=== PATIENT | male | born 1970 | race Caucasian/White ===

== ENCOUNTER 2018-02-24 21:55 | Inpatient (IN) | payer MEDICARE, MEDICAID ==
[~2018-02-24] VITALS: Ht 180.3 cm; Wt 97.5 kg
[~2018-02-24 21:55] MED LIST: ABILIFY; ABILIFY 5 MG TAB5 M1; ABILIFY10 MG PO; ACETAMINOPHEN-1 EAC1 PO; ALBUTEROL INHAL17 GM IH; ALPRAZOLAM; ALPRAZOLAM ER1 MG PO; AMOXICILLIN 50500 M1 PO; AMOXICILLIN 50500 MG PO; AMOXICILLIN500 M1 PO; AMOXICILLIN875 MG PO; AUGMENTIN 875875 MG PO; AURALGAN EAR DR14 ML OT; BACTRIM DS TAB1 EACH PO; CARISOPRODOL 3350 MG PO; CHERATUSSIN DA480 ML; CIPRODEX OTIC7.5 ML OTIC; DOXYCYCLINE 10100 M1 PO; FLEXERIL PO; FLONASE 0.05%50 MCG NASAL; HYDROCODON-ACE1 EAC7 PO; HYDROCODONE-AP1 EAC6 PO; IBUPROFEN 800800 M1 PO; KEFLEX500 MG PO; LATUDA40 MG PO; LORTAB 5 MG/5001 TAB PO; NAPROSYN375 MG PO; NAPROSYN500 MG PO; NEXIUM; NEXIUM 40 MG CA40 M1 PO; NEXIUM40 MG PO; NORCO 5-325 TA1 EACH PO; PAXIL10 MG; PENICILLIN VK500 M1 PO; PENICILLIN VK500 MG PO; PERCOCET 5-3251 EACH PO; PHENERGAN 25 MG25 M1 PO; PHENERGAN-CODE120 ML PO; PREDNISONE 10 M10 M1 PO; PREDNISONE 20 M20 M1 PO; TESSALON PERLE100 MG PO; TESTOSTERONE; THROAT LOZENGE1 EACH PO; TYLENOL325 MG PO; ULTRAM 50MG TAB50 MG PO; VALIUM5 MG PO; WELLBUTRIN SR150 MG PO; XANAX 0.5 MG0.5 MG PO; XANAX XR1 MG; XANAX1 MG PO; ZOFRAN ODT4 MG PO; ZOFRAN4 MG PO; ZPAK PO
[2018-02-24 22:14] VITALS: BP 144/82
[2018-02-24] MEDS ORDERED: AMOXICILLIN 50500 MG (22:18)
[2018-02-24] MEDS ORDERED: DICLOFENAC SODI25 MG (22:18)
[2018-02-24 23:45] LABS: ABSOLUTE LYMPHOCYTES 0.8 thou/uL (0.8-5.3); ABSOLUTE MONOCYTES 0.1 thou/uL (0.0-1.2); ABSOLUTE NEUTROPHILS 2.7 thou/uL (1.6-8.1); BASOPHILS 0.5 %; EOSINOPHILS 0.1 %; HEMATOCRIT 36.9 % (42.0-52.0); HEMOGLOBIN 11.8 gm/dL (14.0-18.0); LYMPHOCYTES 21.4 %; MCH 23.6 pg (26.0-34.0); MCHC 31.9 g/dL (28.0-37.0); MONOCYTES 2.5 %; MPV 8.2 fl. (7.2-11.1); NUCLEATED RBCS 0 /100WBC; PLATELET COUNT* 173 thou/uL (150-400); POLYS 75.5 %; RBC 4.99 mil/uL (4.50-6.00); RDW-CV 15.2 % (10.5-14.5); WBC 3.5 thou/uL (4.0-11.0)
[2018-02-24 23:49] LABS: ANION GAP 8 mmol/L (7-16); BUN 15 mg/dL (7-18); CALCIUM 7.9 mg/dL (8.5-10.1); CHLORIDE 107 mmol/L (98-107); CO2 27 mmol/L (21-32); CREATININE 1.1 mg/dL (0.6-1.3); GLUCOSE 150 mg/dL (70-99); POTASSIUM 3.6 mmol/L (3.5-5.1); SODIUM 142 mmol/L (136-145)
[2018-02-24 23:56] LABS: ALBUMIN 2.9 g/dL (3.4-5.0); ALKALINE PHOSPHATASE 46 U/L (46-116); SGOT 57 U/L (15-37); SGPT 83 U/L (30-65); TOTAL BILIRUBIN 0.3 mg/dL (<0.1-1.0); TOTAL PROTEIN 6.3 g/dL (6.4-8.2); TROPONIN-I LEVEL <0.06 ng/mL (<0.06)
[2018-02-25] VITALS (7 sets, daily range): BP systolic 113–143; BP diastolic 67–91
[2018-02-25] MEDS ORDERED: ACETAMINOPHEN-1 EAC1 PO (00:03)
[2018-02-25] MEDS ORDERED: PROMETHAZINE V473 ML PO (00:03)
[2018-02-25] MEDS ORDERED: TESSALON PERLE100 MG PO (00:03)
[2018-02-25] MEDS ORDERED: PROAIR HFA8.5 GM INH (00:03)
[2018-02-25] MEDS ORDERED: ZPAK PO (00:03)
[2018-02-25] MEDS ORDERED: XANAX1 MG PO (01:41)
[2018-02-25 01:47] LABS: INFLUENZA A ANTIGEN None Detected (None Detect); INFLUENZA B ANTIGEN None Detected (None Detect)
--- NOTE | 2018-02-25 07:57 | NUR ---
PT WAS ADMITTED TO ROOM 209 DURING THIS SHIFT; VSS EXCEPT FOR TACHYCARDIA, A+OX4, HAS SOME LEFT RIB PAIN. HE IS ABLE TO COMMUNICATE HIS NEEDS TO STAFF EFFECTIVELY. CURRENT PAIN MEDICATION REGIMEN HAS BEEN ADEQUATE FOR CONTROLLING HIS PAIN UP TO THIS TIME. HE HAS HAD SOME BLOOD-TINGED SPUTUM.
--- NOTE | 2018-02-25 10:08 | NUR ---
This RN agrees with the assessment of SN. Ashvin
--- NOTE | 2018-02-25 12:59 | NUR ---
RECEIVED REPORT. ASSUMED CARE OF PT AT 0730. PT A&O X4. VSS, PT SLIGHTLY FEBRILE 101.8. MESSAGE SENT TO DR RODRIGUEZ FOR ORDER FOR TYLENOL. O2 SAT 92% ON 2L PER NC. [place] CLERK IN PLACE TRACING SR. AM ASSESSMENT AND VITALS COMPLETED CHARTED. PT NEGATIVE FOR SEPSIS. PT STATES "I FEEL LIKE CRAP". REASSURANCE GIVEN. NOTED COARSE LUNG SOUNDS TO LEFT LOWER AND UPPER LOBES, DIMINISHED LUNGS SOUNDS ON THE RIGHT. PT HAVING EXERTIONAL DYSPNEA. PT EATING AND DRINKING WITHOUT ISSUE. IV INTACT AND INFUSING IVF. PT REPORTS INTERMITTENT LEFT SIDE PAIN WITH COUGHING. PT DENIES NEED FOR MEDICATION FOR PAIN AT THIS TIME. PT INFORMED OF PLAN OF CARE. PT COMMUNICATES UNDERSTANDING. PT WENT DOWN FOR CTA OF CHEST AND CT ABD/PELVIS THIS AM. PT RESTING IN BED AT THIS TIME. CALL LIGHT IS WITHIN REACH. LOW FALL RISK PRECAUTIONS ARE IN PLACE. WCTM.
[2018-02-25 13:13] LABS: HEMOGLOBIN 11.9 gm/dL (14.0-18.0); MCH 23.4 pg (26.0-34.0); MCHC 31.5 g/dL (28.0-37.0); MCV 74.4 fL (80.0-100.0); MPV 8.2 fl. (7.2-11.1); NUCLEATED RBCS 0 /100WBC; PLATELET COUNT* 194 thou/uL (150-400); RDW-CV 15.7 % (10.5-14.5); WBC 6.1 thou/uL (4.0-11.0)
[2018-02-25 13:21] LABS: ALBUMIN 2.9 g/dL (3.4-5.0); CALCIUM 7.9 mg/dL (8.5-10.1); MAGNESIUM 1.7 mg/dL (1.8-2.4); POTASSIUM 3.8 mmol/L (3.5-5.1); TOTAL BILIRUBIN 0.2 mg/dL (<0.1-1.0); TOTAL PROTEIN 6.6 g/dL (6.4-8.2)
[2018-02-25 13:27] LABS: ABSOLUTE LYMPHOCYTES 0.4 thou/uL (0.8-5.3); ABSOLUTE MONOCYTES 0.1 thou/uL (0.0-1.2); ABSOLUTE NEUTROPHILS 5.6 thou/uL (1.6-8.1); ANISOCYTOSIS 1+; PLATELET ESTIMATE ADEQUATE; POIKILOCYTOSIS 1+
[2018-02-25 13:44] LABS: AMP/METHAMP Negative (Negative); BARBITURATES Negative (Negative); BENZODIAZEPINES Negative (Negative); COCAINE Negative (Negative); METHADONE Negative (Negative); OPIATES Negative (Negative); PCP Negative (Negative); THC Negative (Negative)
--- NOTE | 2018-02-25 14:38 | NUR ---
CM ASSESSMENT: Pt is A&O. Resides at home with his . Independent with ADLS. No DME. No hx of HH or SNF. Goal is to return home once medically stable. No needs anticipated. Following.
--- NOTE | 2018-02-25 15:24 | EKG ---
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 : 1970 Requested By: Janny Medel Order Number: [id number] MD: Jos Batres Measurements Intervals [place] Rate: 111 P: 44 CA: 117 QRS: 36 QRSD: 86 T: -18 QT: 310 QTc: 421 Interpretive Statements Sinus tachycardia Atrial premature complexes Borderline T abnormalities, inferior leads Baseline wander in lead(s) II,III,aVF Compared to ECG 11/15/2017 17:35:30 Atrial premature complex(es) now present T-wave abnormality now present Sinus rhythm no longer present Electronically Signed On 02-25-2018 15:24:33 CDT by Jos Batres [email or web address] <ELECTRONICALLY SIGNED> By: Jos Batres MD, FACC 02/25/18 1524 [id number] Jos Batres MD, FACC /EPI
--- NOTE | 2018-02-25 16:03 | CON ---
[address] [address] CONSULTATION Name: AISHA MEDINA JR Room: [address] IN .R.#: [id number] Admission: 02/25/18 Attend Phys: Jose Francisco Whitlock MD Discharge: Date of : 74 Report #: [id number] THIS REPORT FOR: //name// CC: Jose Francisco Becker DATE OF SERVICE: 02/25/2018 REQUESTING PHYSICIAN: Dr. Dougherty. INDICATION FOR CONSULTATION: Pulmonary infiltrates. HISTORY OF PRESENT ILLNESS: A 47-year-old gentleman. He has a remote history of smoking. He does have a history of marijuana use. The patient has also had a reported history of use of alcohol, unable to quantify exactly at this time. The patient is now here with pneumonia. He has relapsed. He reports having had increase in shortness of breath as well as a cough with hemoptysis for the last several days. The patient also has a high grade fever up to 38.8 degrees Celsius. He does report having had fever and chills. The patient also reports having had chest pain associated with respiration and coughing, at times he has had pain in his abdomen as well. He does have some distention in his abdomen, but denies having had any nausea, vomiting, diarrhea or constipation. The patient does have disturbed sleep at night as well as sleepiness during the day. These complaints are at baseline. The patient has a CPAP at home; however, it is broken. He was due for another sleep study. The patient did not have any upper respiratory complaints at this time. REVIEW OF SYSTEMS: For 12 points is negative except as mentioned above. PAST MEDICAL HISTORY: Dental abscess/dental caries, ingrown left great toenail, otitis media, pneumonia, bipolar disorder, anxiety, obstructive sleep apnea, CPAP currently broken. CURRENT MEDICATIONS: List in [place] reviewed. HOME MEDICATIONS: List also in [place] reviewed. FAMILY HISTORY: No pertinent family history is known at this time. SOCIAL HISTORY: The patient reports that he was a smoker and discontinued 20 years ago, but states that he smoked for many years prior to that more than a pack a day. He does use marijuana. There is conflicting information regarding use of alcohol. There is use of alcohol, unclear as to whether the patient has a history of heavy alcohol use. PHYSICAL EXAMINATION: [place] [address] CONSULTATION Name: AISHA MEDINA JR Room: [address]#: [id number] Admission: 02/25/18 Attend Phys: Jose Francisco Whitlock MD Discharge: Date of : 74 Report #: [id number] GENERAL: He is alert, awake and oriented, does not appear to have any distress at this time. VITAL SIGNS: Has a pulse of 110, blood pressure 143/74. He has a high grade fever 38.8. His respiratory rate is 22. He is on 2 liters nasal cannula, saturating 92%. HEENT: Head is normocephalic, atraumatic. Pupils are equal and reactive. There is no throat erythema. He has a Mallampati 3 airway. NECK: Does not show raised JVP, asymmetry, mass or lymph nodes. CHEST: Symmetrical expansion on inspection and palpation. On auscultation, breath sounds are bilaterally equal. No added sounds. HEART: Regular. There is no murmur. ABDOMEN: Distended. There is vague tenderness around the umbilicus. EXTREMITIES: Lower extremities show no edema, no calf tenderness. SKIN: Dry and intact. NEUROLOGICAL: Moves all extremities bilaterally equally and spontaneously with no focal deficit identified. LABORATORY DATA: The patient has had a CTA chest performed, which does show extensive infiltrates, left greater than right. Underlying mass not ruled out. There is no evidence of pulmonary emboli. The patient's lab work including CBC as well as chemistries in [facility] reviewed, in fact had chemistry as well as CBC repeated now and these are also reviewed. Rapid swab for influenza was negative. ASSESSMENT AND PLAN: 1. Acute respiratory insufficiency secondary to pneumonia. We will continue with supportive therapy. Considering the patient's history of obstructive sleep apnea, I placed him on BiPAP while asleep for now. 2. Pulmonary infiltrates/pneumonia. I have broadened antibiotic coverage to vancomycin and Levaquin. More cultures and serologies are ordered. Agree with a few doses of Solu-Medrol as ordered as well. 3. Hemoptysis. This is secondary to pneumonia. 4. Rule out underlying mass. I feel that this is unlikely. Regardless, I agree with the radiologist's suggestion to repeat another CT in about 2-3 months to verify absence of underlying mass. Likelihood is that the current finding on CTA is secondary to infiltrates. 5. Obstructive sleep apnea. Discussion as above. He is due for another sleep study, to be set up with another CPAP. 6. Possible pancreatitis. Lipase level is normal; however, there are findings on CT of the abdomen and pelvis suggestive of pancreatitis. Suggest followup. 7. Gastroesophageal reflux disease. On a proton pump inhibitor. 8. Deep venous thrombosis prophylaxis. I did not order subcutaneous Lovenox now secondary to recent history of hemoptysis, but this will be a consideration later. [address] [place] [address] CONSULTATION Name: KATELYN MEDINAMADIHA Torres JR Room: [address] IN [facility]#: [id number] Admission: 02/25/18 Attend Phys: Jose Francisco Whitlock MD Discharge: Date of : 74 Report #: [id number] Thanks for this consultation. <ELECTRONICALLY SIGNED> By: Ananda Molina MD 02/25/18 1603 [id number] [id number] Molina MD /nt
--- NOTE | 2018-02-25 19:00 | NUR ---
PT REMAINS A&O X4, VSS. O2 SAT >90% ON RA. PT CHANGED TO M/S STATUS. REQUEST FOR TYLENOL DENIED BY DOCTOR. IBU ORDERED INSTEAD. GIVEN TO PT THIS AFTERNOON FOR HEAD PAIN, RELIEF OBTAINED - PT ABLE TO SLEEP. IV TO RIGHT WRIST INTACT AND INFUSING IVF. IV TO RIGHT AC SALINE LOCKED. PT EATING AND DRINKING WITHOUT ISSUE. PT VOIDING PER URINAL WITHOUT ISSUE. PT SLOWLY PROGRESSING TOWARD GOALS. PT CURRENTLY RESTING IN BED. LOW FALL RISK PRECAUTIONS IN PLACE. CALL LIGHT IS WITHIN REACH, HOURLY ROUNDING PERFORMED.
[2018-02-26] VITALS: BP 124/70
[2018-02-26 02:08] LABS: HEPATITIS B SURFACE AG Negative (Negative)
[2018-02-26 04:35] LABS: ABSOLUTE LYMPHOCYTES 0.9 thou/uL (0.8-5.3); ABSOLUTE MONOCYTES 0.2 thou/uL (0.0-1.2); ABSOLUTE NEUTROPHILS 4.4 thou/uL (1.6-8.1); BASOPHILS 0.2 %; HEMATOCRIT 37.5 % (42.0-52.0); LYMPHOCYTES 16.8 %; MCH 23.6 pg (26.0-34.0); MCHC 32.1 g/dL (28.0-37.0); MCV 73.5 fL (80.0-100.0); MONOCYTES 3.1 %; MPV 8.3 fl. (7.2-11.1); NUCLEATED RBCS 0 /100WBC; PLATELET COUNT* 209 thou/uL (150-400); POLYS 79.9 %; RBC 5.11 mil/uL (4.50-6.00); RDW-CV 15.5 % (10.5-14.5); WBC 5.6 thou/uL (4.0-11.0)
[2018-02-26 04:59] LABS: CALCIUM 8.1 mg/dL (8.5-10.1); CREATININE 0.8 mg/dL (0.6-1.3); POTASSIUM 4.4 mmol/L (3.5-5.1)
--- NOTE | 2018-02-26 07:50 | NUR ---
PT IS ABLE TO COMMUNICATE HIS NEEDS TO STAFF EFFECTIVELY. CURRENT PAIN MEDICATION REGIMEN HAS BEEN ADEQUATE FOR CONTROLLING HIS PAIN UP TO THIS TIME. REPEAT CXR PERFORMED THIS AM; RESULTS PENDING. PT TO START WEARING A BIPAP AT NIGHT.
[2018-02-26 08:16] VITALS: BP 108/50
[2018-02-26 11:49] VITALS: BP 106/70
[2018-02-26 15:58] VITALS: BP 142/80
--- NOTE | 2018-02-26 18:12 | NUR ---
ASSUMED CARE OF PATIENT AFTER REPORT THIS MORNING. PATIENT AWAKE, ALERT, AND ORIENTED APPROPRIATELY. PHYSICAL ASSESSMENT COMPLETED AND CHARTED. NO COMPLAINTS OF PAIN THIS SHIFT. GIVEN SCHEDULED MEDICATIONS, SEE EMAR FOR DOCUMENTATION. VITAL SIGNS STABLE. OXYGEN SATURATION WITHIN NORMAL LIMITS ON 2 LPM PER NASAL CANULA. PATIENT TRANSFERS AND AMBULATES INDEPENDENTLY IN ROOM. USES CALL LIGHT APPROPRIATELY. DENIES NEEDS AT THIS TIME. CALL LIGHT WITHIN REACH. NURSING WILL CONTINUE TO MONITOR.
[2018-02-26 20:18] VITALS: BP 128/72
[2018-02-27 05:05] LABS: ABSOLUTE LYMPHOCYTES 0.7 thou/uL (0.8-5.3); ABSOLUTE MONOCYTES 0.3 thou/uL (0.0-1.2); ABSOLUTE NEUTROPHILS 5.7 thou/uL (1.6-8.1); HEMATOCRIT 34.9 % (42.0-52.0); HEMOGLOBIN 11.4 gm/dL (14.0-18.0); LYMPHOCYTES 10.4 %; MCH 23.9 pg (26.0-34.0); MCHC 32.6 g/dL (28.0-37.0); MCV 73.3 fL (80.0-100.0); MONOCYTES 4.4 %; MPV 8.4 fl. (7.2-11.1); NUCLEATED RBCS 0 /100WBC; PLATELET COUNT* 263 thou/uL (150-400); POLYS 85.2 %; RBC 4.77 mil/uL (4.50-6.00); RDW-CV 15.5 % (10.5-14.5); WBC 6.6 thou/uL (4.0-11.0)
[2018-02-27 08:00] VITALS: BP 118/64
--- NOTE | 2018-02-27 08:00 | NUR ---
AM ASSESSMENT COMPLETE, DEFER TO COMPUTER CHARTING. ALERT ORIENTED, TREMORS NOTED IN HANDS. LUNGS DIMINISHED WITH CRACLES ON LEFT, ROOM AIR. ANXIOUS, REASSURANCE GIVEN. NO COMPLAINTS OF PAIN OR NAUSEA. CALL LIGHT WITHIN REACH. WILL MONITOR.
--- NOTE | 2018-02-27 08:12 | NUR ---
PT IS ABLE TO COMMUNICATE HIS NEEDS TO STAFF EFFECTIVELY. CURRENT PAIN MEDICATION REGIMEN HAS BEEN ADEQUATE FOR CONTROLLING HER PAIN UP TO THIS TIME. PT WORE A BIPAP WHILE SLEEPING OVERNIGHT, PER MD ORDER.
--- NOTE | 2018-02-27 14:10 | NUR ---
NOTIFIED BY CHARGE NURSE PATIENT TO TRANSFER TO [facility] MEDICAL FLOOR FOR CONTINUATION OF CARE. REPORT CALLED GIVEN TO EMMA BUSH WHOM VERBALIZED UNDERSTANDING. PATIENT TRANSFERED TO ROOM 317 WITH ALL PERSONAL BELONGINGS.
--- NOTE | 2018-02-27 15:15 | NUR ---
PATIENT TRANSFERRED FROM TELE TO THE FLOOR IN STABLE CONDITION. NO COMPLAINTS OF ANY KIND AT THIS TIME. ORIENTED TO ROOM, CALL LIGHT IS IN REACH, WILL CONTINUE TO MONITOR.
[2018-02-27 16:36] VITALS: BP 125/73
--- NOTE | 2018-02-27 17:31 | NUR ---
PATIENT IS ALERT AND ORIENTED TODAY VERY PLEASANT. UP AD NADINE IN ROOM, FAMILY IS AT BEDSIDE. NO COMPLAINTS OF ANY PAIN TODAY. VITAL SIGNS STABLE ON 2 LITERS OF OXYGEN NEEDED. IV IN RIGHT AC WORKS WELL FOR ANTIBIOTICS. CALL LIGHT IS IN REACH, WILL CONTINUE TO MONITOR.
[2018-02-27 20:00] VITALS: BP 131/66
--- NOTE | 2018-02-28 05:14 | NUR ---
ASSUMED CARE OF PT AT 1900 ALERT AND ORIENTED X4, VS AND ASSESSMENT STABLE. PT AMBULATED AROUND THE UNIT MULTIPLE TIMES. PT DENIED ANY COMPLAINTS AND SLEPT THROUGH THE NIGHT WILL CONTINUE PLAN OF CARE.
[2018-02-28 17:07] VITALS: BP 127/80
--- NOTE | 2018-02-28 18:41 | NUR ---
PATIENT IS ALERT AND ORIENTED TODAY VERY PLEASANT UP AD NADINE IN ROOM AND HAS BEEN WALKING IN THE HALLWAYS. IV IN LEFT HAND WORKS WELL. NO COMPLAINTS OF ANY PAIN TODAY, BREATHING HAS BEEN OKAY, PATIENT IS WEARING 2 LITERS OF OXYGEN NEEDED. CALL LIGHT IS IN REACH, WILL CONTINUE TO MONITOR.
[2018-02-28 21:10] LABS: ADENOVIRUS Negative (Negative); INFLUENZA A Negative (Negative); INFLUENZA B Negative (Negative); METAPNEUMOVIRUS Negative (Negative); PARAINFLUENZA 1 Negative (Negative); PARAINFLUENZA 2 Negative (Negative); PARAINFLUENZA 3 Negative (Negative); RHINOVIRUS Negative (Negative); RSV A Negative (Negative); RSV B Negative (Negative)
[2018-03-01 04:47] LABS: ALBUMIN 2.7 g/dL (3.4-5.0); CALCIUM 8.2 mg/dL (8.5-10.1); CREATININE 0.7 mg/dL (0.6-1.3); MAGNESIUM 2.1 mg/dL (1.8-2.4); POTASSIUM 3.5 mmol/L (3.5-5.1); TOTAL BILIRUBIN 0.4 mg/dL (<0.1-1.0); TOTAL PROTEIN 6.2 g/dL (6.4-8.2)
[2018-03-01 04:57] LABS: ABSOLUTE MONOCYTES 0.6 thou/uL (0.0-1.2); ABSOLUTE NEUTROPHILS 3.6 thou/uL (1.6-8.1); BASOPHILS 0.1 %; WBC 5.9 thou/uL (4.0-11.0)
[2018-03-01 04:59] LABS: ABSOLUTE LYMPHOCYTES 1.7 thou/uL (0.8-5.3); EOSINOPHILS 0.3 %; HEMATOCRIT 37.8 % (42.0-52.0); HEMOGLOBIN 12.2 gm/dL (14.0-18.0); LYMPHOCYTES 28.2 %; MCH 23.6 pg (26.0-34.0); MCHC 32.3 g/dL (28.0-37.0); MCV 72.8 fL (80.0-100.0); MONOCYTES 10.3 %; MPV 8.4 fl. (7.2-11.1); NUCLEATED RBCS 0 /100WBC; PLATELET COUNT* 303 thou/uL (150-400); POLYS 61.1 %; RBC 5.19 mil/uL (4.50-6.00); RDW-CV 15.1 % (10.5-14.5)
--- NOTE | 2018-03-01 05:43 | NUR ---
ASSESSMENT COMPLETE. PT SLEPT THROUGH THE NIGHT WITHOUT ANY CONCERNS. PT GIVEN IBUPROFEN FOR BACK PAIN ONCE, AND XANAX ONCE FOR ANXIETY. PT IS ON ROOM AIR WITH [place] SATS. PT AMBULATED HALLS BEFORE BED. PT IS UP AD NADINE WITH STEADY GAIT. SEE ASSESSMENT AND VITALS FOR OTHER DETAILS. CALL LIGHT WITHIN REACH, WILL CONTINUE PLAN OF CARE
[2018-03-01 08:00] VITALS: BP 140/75
[2018-03-01 16:00] VITALS: BP 123/93
--- NOTE | 2018-03-01 19:51 | NUR ---
PT IS ALERT AND ORIENTED X3 FORGETFUL SEEMS 'SENSITIVE AND CONSTANTLY NEEDS REASSURANCE WHEN IN THE ROOM, ESPECIALLY TRYING FOR AN IV' STATED LAST IV BURNED NO REDNESS EDEMA OR S/SX OF INFILTRATION TRIED IN RAC GOT IT BLOOD RETURN FLUSHES GREAT BUT PT STATES IT BOATENG ANOTHER NURSE TO TRY PLAN FOR POSSIBLE BRONCH ON SATURDAY CONT WITH IV ANTIBIOTICS CALL LIGHT IN REACH IV LASIX GIVEN
[2018-03-02 00:50] VITALS: BP 137/77
--- NOTE | 2018-03-02 03:53 | NUR ---
PT TAKE OFF BIPAP
[2018-03-02 04:29] LABS: ALBUMIN 2.8 g/dL (3.4-5.0); CALCIUM 8.5 mg/dL (8.5-10.1); CREATININE 0.8 mg/dL (0.6-1.3); MAGNESIUM 2.7 mg/dL (1.8-2.4); TOTAL BILIRUBIN 0.4 mg/dL (<0.1-1.0)
[2018-03-02 04:46] LABS: POTASSIUM 4.8 mmol/L (3.5-5.1)
[2018-03-02 10:01] VITALS: BP 146/71
--- NOTE | 2018-03-02 14:57 | EKG ---
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 : 1970 Requested By: Jose Francisco Whitlock Order Number: [id number] Reading MD: Jos Batres Measurements Intervals [place] Rate: 108 P: 54 MD: 121 QRS: 33 QRSD: 92 T: 1 QT: 330 QTc: 443 Interpretive Statements Sinus tachycardia Abnormal R-wave progression, early transition ST elevation, consider early repolarization Baseline wander in lead(s) V2,V3 Compared to ECG 02/24/2018 23:04:20 ST (T wave) deviation now present Atrial premature complex(es) no longer present T-wave abnormality no longer present Electronically Signed On 03-02-2018 14:57:31 CDT by Jos Batres [email or web address] <ELECTRONICALLY SIGNED> By: Jos Batres MD, FACC 03/02/18 1457 [id number] Jos Batres MD, [facility] /EPI
[2018-03-02 16:00] VITALS: BP 138/77
--- NOTE | 2018-03-02 17:39 | NUR ---
PATIENT IS ALERT AND ORIENTED TODAY, PLEASANT BUT ANXIOUS. NO COMPLAINTS OF PAIN TODAY JUST OF SOME HEARTBURN, TUMS ORDERED FOR PATIENT AND GIVEN. BLOOD SUGAR HAS BEEN SLIGHTLY ELEVATED SO LOWE DOSE SLIDING SCALE STARTED TODAY. PATIENT IS UP AD NADINE, VITAL SIGNS STABLE ON ROOM AIR BUT PREFERS TO WEAR 2 LITERS OF OXYGEN. CALL LIGHT IS IN REACH, WILL CONTINUE TO MONITOR.
[2018-03-03 01:59] VITALS: BP 120/77
[2018-03-03 04:18] LABS: ABSOLUTE EOSINOPHILS 0.1 thou/uL (0.0-0.7); ABSOLUTE LYMPHOCYTES 1.9 thou/uL (0.8-5.3); ABSOLUTE MONOCYTES 0.8 thou/uL (0.0-1.2); BASOPHILS 0.3 %; EOSINOPHILS 0.9 %; HEMATOCRIT 36.8 % (42.0-52.0); HEMOGLOBIN 11.7 gm/dL (14.0-18.0); LYMPHOCYTES 16.3 %; MCH 23.2 pg (26.0-34.0); MCHC 31.7 g/dL (28.0-37.0); MCV 73.3 fL (80.0-100.0); MONOCYTES 6.7 %; MPV 8.6 fl. (7.2-11.1); NUCLEATED RBCS 0 /100WBC; POLYS 75.8 %; RBC 5.02 mil/uL (4.50-6.00); RDW-CV 15.2 % (10.5-14.5); WBC 11.9 thou/uL (4.0-11.0)
[2018-03-03 04:25] LABS: PLATELET COUNT* 437 thou/uL (150-400)
[2018-03-03 04:30] LABS: ALBUMIN 2.5 g/dL (3.4-5.0); CALCIUM 8.2 mg/dL (8.5-10.1); MAGNESIUM 2.2 mg/dL (1.8-2.4); POTASSIUM 4.2 mmol/L (3.5-5.1); TOTAL BILIRUBIN 0.4 mg/dL (<0.1-1.0); TOTAL PROTEIN 6.1 g/dL (6.4-8.2)
--- NOTE | 2018-03-03 06:30 | NUR ---
ASSESSMENT COMPLETE. PT SLEPT PART OF THE NIGHT. PT DENIES PAIN. ANXIETY MEDICATION GIVEN NEEDED. PT ON BIPAP FOR 4 HOURS DURING THE NIGHT. PT IS ON ROOM AIR WITH [place] SATS. PT IS UP AD NADINE TO BATHROOM. SEE ASSESSMENT AND VITALS FOR OTHER DETAILS. CALL LIGHT WITHIN REACH, WILL CONTINUE PLAN OF CARE.
[2018-03-03 09:10] VITALS: BP 123/70
--- NOTE | 2018-03-03 11:11 | NUR ---
Pt to dc home with today. No HH orders or DME orders, dc needs or any questions or concerns presented.
[2018-03-03 11:17] VITALS: BP 123/70
[2018-03-03] MEDS ORDERED: PREDNISONE 10 M10 MG PO (11:22)
[2018-03-03] MEDS ORDERED: AUGMENTIN 875-1 EACH PO (11:23)
--- NOTE | 2018-03-03 12:47 | NUR ---
PRESCRIPTIONS OF PREDNISONE AND AUGMENTIN CALLED INTO PATIENT'S PHARMACY ([facility]). PATIENT GIVEN DISCHARGE INSTRUCTIONS AND INFORMATION REGARDING NEW MEDICATIONS. WAITING FOR RIDE AT THIS TIME.
== END 2018-03-03 12:30 | disposition home or self-care (01) | DRG 871 ==
LOC: M.ERS 21:55 → M.TBA-ER 02-25 00:15 → M.ERS 02-25 00:15 → M.2W 02-25 00:15 → M.3W 02-27 14:31
PROVIDERS: Family Medicine; Internal Medicine; Internal Medicine Critical Care Medicine; Physician Assistant; ADMIT Internal Medicine
PROC: 5A09357 Assistance with Respiratory Ventilation, Less than 24 Consecutive Hours, Continuous Positive Airway Pressure (ICD-10-PCS; 2018-02-26)
PROC: 5A09457 Assistance with Respiratory Ventilation, 24-96 Consecutive Hours, Continuous Positive Airway Pressure (ICD-10-PCS; principal; 2018-03-01)
DX: A41.9 Sepsis, unspecified organism (principal); J96.00 Acute respiratory failure, unspecified whether with hypoxia or hypercapnia; J18.1 Lobar pneumonia, unspecified organism; R04.2 Hemoptysis; F31.9 Bipolar disorder, unspecified; K21.9 Gastro-esophageal reflux disease without esophagitis; G47.33 Obstructive sleep apnea (adult) (pediatric); F41.9 Anxiety disorder, unspecified; Z79.899 Other long term (current) drug therapy; Z87.891 Personal history of nicotine dependence

== ENCOUNTER 2018-04-15 21:24 | Emergency (ER) | payer MEDICARE, MEDICAID ==
[~2018-04-15] VITALS: Ht 180.3 cm; Wt 97.5 kg
[~2018-04-15 21:24] MED LIST changes: +AMOXICILLIN 50500 MG; +AUGMENTIN 875-1 EACH PO; +DICLOFENAC SODI25 MG; +PREDNISONE 10 M10 MG PO; +PROAIR HFA8.5 GM INH; +PROMETHAZINE V473 ML PO
[2018-04-15 21:33] VITALS: BP 148/84
[2018-04-15] MEDS ORDERED: CIPRODEX OTIC7.5 ML OTIC (21:43)
[2018-04-15] MEDS ORDERED: TRAMADOL 50 MG50 MG PO (21:43)
== END 2018-04-15 21:50 | disposition home or self-care (01) ==
LOC: M.ERS 21:24
DX: H60.91 Unspecified otitis externa, right ear (principal); K21.9 Gastro-esophageal reflux disease without esophagitis; F31.9 Bipolar disorder, unspecified

== ENCOUNTER 2018-10-23 17:14 | Emergency (ER) | payer MEDICARE, MEDICAID ==
[~2018-10-23] VITALS: Ht 180.3 cm; Wt 99.8 kg
[~2018-10-23 17:14] MED LIST changes: +TRAMADOL 50 MG50 MG PO
[2018-10-23 18:04] LABS: ABSOLUTE BASOPHILS 0.1 thou/uL (0.0-0.2); ABSOLUTE EOSINOPHILS 0.1 thou/uL (0.0-0.7); ABSOLUTE MONOCYTES 0.5 thou/uL (0.0-1.2); ABSOLUTE NEUTROPHILS 6.6 thou/uL (1.6-8.1); BASOPHILS 1.4 %; EOSINOPHILS 1.3 %; HEMATOCRIT 39.1 % (42.0-52.0); HEMOGLOBIN 12.5 gm/dL (14.0-18.0); MCH 23.7 pg (26.0-34.0); MCV 74.2 fL (80.0-100.0); MPV 8.1 fl. (7.2-11.1); NUCLEATED RBCS 0 /100WBC; PLATELET COUNT* 362 thou/uL (150-400); POLYS 71.3 %; RBC 5.27 mil/uL (4.50-6.00); WBC 9.3 thou/uL (4.0-11.0)
[2018-10-23 18:12] LABS: CALCIUM 8.3 mg/dL (8.5-10.1); CREATININE 1.1 mg/dL (0.6-1.3); POTASSIUM 3.7 mmol/L (3.5-5.1)
[2018-10-23 18:17] LABS: ALBUMIN 3.7 g/dL (3.4-5.0); TOTAL BILIRUBIN 0.2 mg/dL (<0.1-1.0); TOTAL PROTEIN 6.8 g/dL (6.4-8.2)
[2018-10-23] MEDS ORDERED: FLEXERIL PO (19:16)
[2018-10-23 19:33] VITALS: BP 138/78
== END 2018-10-23 19:34 | disposition home or self-care (01) ==
LOC: M.ERS 17:14
PROVIDERS: Physician Assistant
DX: S29.019S Strain of muscle and tendon of unspecified wall of thorax, sequela (principal); F31.9 Bipolar disorder, unspecified; F41.9 Anxiety disorder, unspecified; K21.9 Gastro-esophageal reflux disease without esophagitis; X58.XXXS Exposure to other specified factors, sequela

== ENCOUNTER 2019-08-10 11:51 | Emergency (ER) | payer OTHER, MEDICAID ==
[~2019-08-10] VITALS: Ht 180.3 cm; Wt 89.8 kg
[2019-08-10] MEDS ORDERED: TOBRAMYCIN SULFA5 M1 OTIC ×2 (12:23→12:24)
[2019-08-10 12:34] VITALS: BP 122/84
== END 2019-08-10 12:35 | disposition home or self-care (01) ==
LOC: M.ERS 11:51
DX: H60.91 Unspecified otitis externa, right ear (principal); F31.9 Bipolar disorder, unspecified; F41.9 Anxiety disorder, unspecified; K21.9 Gastro-esophageal reflux disease without esophagitis; Z98.890 Other specified postprocedural states

== ENCOUNTER 2020-02-10 21:36 | Emergency (ER) | payer OTHER, MEDICAID ==
[~2020-02-10] VITALS: Ht 180.3 cm; Wt 92.1 kg
[~2020-02-10 21:36] MED LIST changes: +TOBRAMYCIN SULFA5 M1 OTIC
[2020-02-10] MEDS ORDERED: METFORMIN HCL500 M3 PO (21:44)
[2020-02-10] MEDS ORDERED: CYCLOBENZAPRINE10 MG PO (23:29)
[2020-02-10] MEDS ORDERED: TYLENOL WITH CO1 TA1 PO (23:29)
[2020-02-10 23:30] VITALS: BP 156/97
== END 2020-02-10 23:48 | disposition home or self-care (01) ==
LOC: M.ERS 21:36
DX: S10.93XA Contusion of unspecified part of neck, initial encounter (principal); S05.11XA Contusion of eyeball and orbital tissues, right eye, initial encounter; R41.0 Disorientation, unspecified; K21.9 Gastro-esophageal reflux disease without esophagitis; R51 Headache; F41.9 Anxiety disorder, unspecified; F31.9 Bipolar disorder, unspecified; Z79.899 Other long term (current) drug therapy; Y04.8XXA Assault by other bodily force, initial encounter; Y93.89 Activity, other specified; Y92.89 Other specified places as the place of occurrence of the external cause; Y99.8 Other external cause status

== ENCOUNTER 2020-04-04 11:44 | Emergency (ER) | payer OTHER, MEDICAID ==
[~2020-04-04] VITALS: Ht 180.3 cm; Wt 81.7 kg
[~2020-04-04 11:44] MED LIST changes: +CYCLOBENZAPRINE10 MG PO; +METFORMIN HCL500 M3 PO; +TYLENOL WITH CO1 TA1 PO
[2020-04-04] MEDS ORDERED: KEFLEX500 M1 PO (12:23)
[2020-04-04] MEDS ORDERED: IBUPROFEN 800800 M1 PO (12:24)
[2020-04-04 12:32] VITALS: BP 131/70
== END 2020-04-04 12:32 | disposition home or self-care (01) ==
LOC: M.ERS 11:44
DX: S61.412A Laceration without foreign body of left hand, initial encounter (principal); K21.9 Gastro-esophageal reflux disease without esophagitis; F31.9 Bipolar disorder, unspecified; F41.9 Anxiety disorder, unspecified; W22.8XXA Striking against or struck by other objects, initial encounter; Y93.89 Activity, other specified; Y92.89 Other specified places as the place of occurrence of the external cause; Y99.8 Other external cause status

== ENCOUNTER 2020-12-04 11:46 | Emergency (ER) | payer OTHER, MEDICAID ==
[~2020-12-04] VITALS: Ht 180.3 cm; Wt 87.5 kg
[~2020-12-04 11:46] MED LIST changes: +KEFLEX500 M1 PO
[2020-12-04 11:57] VITALS: BP 130/89
[2020-12-04] MEDS ORDERED: WELLBUTRIN 100100 MG PO (12:02)
[2020-12-04] MEDS ORDERED: NEXIUM5 MG PO (12:02)
[2020-12-04] MEDS ORDERED: ZPAK PO (13:25)
== END 2020-12-04 13:34 | disposition home or self-care (01) ==
LOC: M.ERS 11:46
DX: J22 Unspecified acute lower respiratory infection (principal); K21.9 Gastro-esophageal reflux disease without esophagitis; Z79.899 Other long term (current) drug therapy; Z20.828 Contact with and (suspected) exposure to other viral communicable diseases

== ENCOUNTER 2021-09-25 17:24 | Emergency (ER) | payer OTHER, MEDICAID ==
[~2021-09-25] VITALS: Ht 177.8 cm; Wt 71.7 kg
[~2021-09-25 17:24] MED LIST changes: +NEXIUM5 MG PO; +WELLBUTRIN 100100 MG PO
[2021-09-25] MEDS ORDERED: HYDROCODON-ACE1 EAC7 PO (18:42)
[2021-09-25 18:48] VITALS: BP 124/65
== END 2021-09-25 18:48 | disposition home or self-care (01) ==
LOC: M.ERS 17:24
DX: S46.212A Strain of muscle, fascia and tendon of other parts of biceps, left arm, initial encounter (principal); K21.9 Gastro-esophageal reflux disease without esophagitis; F41.9 Anxiety disorder, unspecified; Z79.899 Other long term (current) drug therapy; W18.11XA Fall from or off toilet without subsequent striking against object, initial encounter; Y93.89 Activity, other specified; Y92.89 Other specified places as the place of occurrence of the external cause; Y99.8 Other external cause status